=== PATIENT | female | born 1990 | race Caucasian/White ===

== ENCOUNTER 2018-03-03 20:48 | Emergency (ER) | payer MEDICAID, OTHER | END 2018-03-03 22:17 | disposition home or self-care (01) | LOC: E/R 20:48 | DX: S82.044A Nondisplaced comminuted fracture of right patella, initial encounter for closed fracture (principal); W01.0XXA Fall on same level from slipping, tripping and stumbling without subsequent striking against object, initial encounter; Y92.009 Unspecified place in unspecified non-institutional (private) residence as the place of occurrence of the external cause | CPT/HCPCS: 29505; 73562; 99283-25 ==

== ENCOUNTER 2018-05-30 14:20 | Emergency (ER) | payer MEDICAID | END 2018-05-30 15:28 | disposition home or self-care (01) | LOC: FTE 14:20 | DX: B07.9 Viral wart, unspecified (principal); F17.210 Nicotine dependence, cigarettes, uncomplicated | CPT/HCPCS: 99282; Z7502 ==